=== PATIENT | female | born 1940 | race Caucasian/White ===

== ENCOUNTER → 2016-07-07 | Outpatient (REF) | payer MEDICARE, BC ==
[~2016-07-07] MED LIST: ATOR40TA PO; LEVO10VL PO; MECL-68 PO; RAMI5CA PO; VITA100041 PO; WARF-23 PO; XALA0.002 OU; cholestyramine; preservision; systane
[2016-07-07 11:18] LABS: INR 2.48
== END ==
LOC: M SFHCCLAY 08:32
PROVIDERS: ATTEND Family Medicine
DX: Z79.01 Long term (current) use of anticoagulants (principal)

== ENCOUNTER → 2016-08-04 | Outpatient (REF) | payer MEDICARE, BC ==
[2016-08-04 11:30] LABS: INR 2.28
== END ==
LOC: M SFHCCLAY 09:25
PROVIDERS: ATTEND Family Medicine
DX: Z79.01 Long term (current) use of anticoagulants (principal); Z86.73 Personal history of transient ischemic attack (TIA), and cerebral infarction without residual deficits

== ENCOUNTER → 2016-09-01 | Outpatient (REF) | payer MEDICARE, BC ==
[2016-09-01 11:57] LABS: INR 2.05
== END ==
LOC: M SFHCCLAY 08:06
PROVIDERS: ATTEND Family Medicine
DX: Z79.01 Long term (current) use of anticoagulants (principal)

== ENCOUNTER → 2016-09-29 | Outpatient (REF) | payer MEDICARE, BC ==
[2016-09-29 12:39] LABS: INR 2.15
== END ==
LOC: M SFHCCLAY 07:40
PROVIDERS: ATTEND Family Medicine
DX: Z51.81 Encounter for therapeutic drug level monitoring (principal); Z79.01 Long term (current) use of anticoagulants

== ENCOUNTER → 2016-10-07 | Outpatient (CLI) | payer MEDICARE, BC ==
--- NOTE | 2016-10-25 11:12 | DEXA ---
AP SPINE L1 - L4 0.961 -1.9 -0.1 LT FEMUR TOTAL 0.871 -1.1 0.7 RT FEMUR TOTAL 0.771 -1.9 -0.1 TOTAL BODY TOTAL OTHER DUAL FEMUR FRAX* ASSESSMENT Risk factors: Possible premature menopause. 10 year probability of fracture Major osteoporotic fracture 13.1 % Hip fracture 3.3 % COMMENTS: There is low bone density of the spine and hips. The density of the spine has decreased 6.7% since the initial exam on 2003. Spine density has decreased 6.4% since the most recent exam on 03/20/2013. The density of the left hip has decreased 10.2% since the initial exam on 2003. The density of the left hip has decreased 9.1% since the most recent exam on . The density of the right hip has decreased 9.8% since the initial exam on 2003. The density of the right hip has decreased 10.5% since the most recent exam on 03/20/2013. FOLLOW-UP: Recommendation for the next bone density exam: 2 years. AMEENAD
== END ==
LOC: M WHC 10:28
PROVIDERS: ATTEND Family Medicine
DX: M85.9 Disorder of bone density and structure, unspecified (principal)

== ENCOUNTER → 2016-10-27 | Outpatient (REF) | payer MEDICARE, BC ==
[2016-10-27 12:04] LABS: INR 2.52
== END ==
LOC: M SFHCCLAY 07:33
PROVIDERS: ATTEND Family Medicine
DX: Z51.81 Encounter for therapeutic drug level monitoring (principal); Z79.01 Long term (current) use of anticoagulants

== ENCOUNTER → 2016-11-23 | Outpatient (CLI) | payer MEDICARE, BC ==
--- NOTE | 2016-11-23 14:45 | REP ---
RIGHT LONG AND RING FINGER MRI STUDY WITHOUT CONTRAST: HISTORY: Finger pain. The patient describes chronic pain in the long and ring finger from the metacarpals to the PIP joint region. Comparison radiographs of the right ring and long fingers are from April 19, 2013. TECHNIQUE: Axial, coronal and sagittal imaging planes are utilized. T1 and T2-weighted scans were obtained with and without fat saturation. MRI FINDINGS: Cortical and medullary bone signal intensity are normal in the proximal phalanges, middle phalanges and distal phalanges of all of the visualized digits. No significant joint effusion is seen. No collateral, flexion, or extensor tendon disruption is seen. On T2-weighted scans, there are small areas of increased T2 signal intensity in the distal phalangeal soft tissues just volar to the bony distal tuft. In the long finger this area measures 6 x 5 mm. In the ring finger, this area is smaller, 3 x 4 mm. There is no similar area of abnormal signal intensity adjacent to the distal tuft of the small or index finger or the thumb. Because of the description provided of the location of the patient's pain, the axial sequence does not include the distal marlon. 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 Exam is otherwise unremarkable. 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 No bony abnormality. Otherwise negative study. Signed by Chase Yung MD 11/23/2016 05:08 P
== END ==
LOC: M RAD 11:09
PROVIDERS: ATTEND Plastic Surgery Surgery of the Hand
DX: M79.644 Pain in right finger(s) (principal)

== ENCOUNTER → 2016-11-24 | Outpatient (REF) | payer MEDICARE, BC ==
[2016-11-24 11:22] LABS: INR 1.91
== END ==
LOC: M SFHCCLAY 08:08
PROVIDERS: ATTEND Family Medicine
DX: Z51.81 Encounter for therapeutic drug level monitoring (principal); Z79.01 Long term (current) use of anticoagulants

== ENCOUNTER → 2016-12-22 | Outpatient (REF) | payer MEDICARE, BC ==
[2016-12-22 12:09] LABS: INR 2.18
== END ==
LOC: M SFHCCLAY 07:28
PROVIDERS: ATTEND Family Medicine
DX: Z51.81 Encounter for therapeutic drug level monitoring (principal); Z79.01 Long term (current) use of anticoagulants

== ENCOUNTER → 2016-12-31 | Outpatient (REF) | payer MEDICARE, BC ==
[~2016-12-31] MED LIST changes: -ATOR40TA PO; +ATOR40TA75 PO; +VITA-182 PO; -VITA100041 PO; -XALA0.002 OU; +XALA0.007 OU
[2016-12-31 12:37] LABS: ANION GAP 6 MEQ/L (8-16); BLOOD UREA NITROGEN 16 MG/DL (7-18); CALCIUM LEVEL 10.4 MG/DL (8.8-10.2); CARBON DIOXIDE LEVEL 28 MEQ/L (21-32); CHLORIDE LEVEL 108 MEQ/L (98-107); CREATININE FOR GFR 0.64 MG/DL (0.55-1.02); GLOMERULAR FILTRATION RATE > 60.0 (>39); GLUCOSE, FASTING 97 MG/DL (83-110); POTASSIUM SERUM 4.1 MEQ/L (3.5-5.1); SODIUM LEVEL 142 MEQ/L (136-145)
== END ==
LOC: M SFHCCLAY 09:24
PROVIDERS: ATTEND Family Medicine
DX: E11.9 Type 2 diabetes mellitus without complications (principal)
CPT/HCPCS: 80048; 83036; G0463

== ENCOUNTER → 2017-01-19 | Outpatient (REF) | payer MEDICARE, BC ==
[2017-01-19 11:45] LABS: INR 2.24
== END ==
LOC: M SFHCCLAY 08:27
PROVIDERS: ATTEND Family Medicine
DX: Z79.01 Long term (current) use of anticoagulants (principal)

== ENCOUNTER → 2017-02-16 | Outpatient (REF) | payer MEDICARE, BC ==
[2017-02-16 12:32] LABS: INR 1.93
== END ==
LOC: M SFHCCLAY 07:58
PROVIDERS: ATTEND Family Medicine
DX: Z51.81 Encounter for therapeutic drug level monitoring (principal); Z79.01 Long term (current) use of anticoagulants

== ENCOUNTER → 2017-04-06 | Outpatient (REF) | payer MEDICARE, BC ==
[2017-04-06 12:01] LABS: INR 2.73
== END ==
LOC: M SFHCCLAY 08:14
PROVIDERS: ATTEND Family Medicine
DX: Z79.01 Long term (current) use of anticoagulants (principal)

== ENCOUNTER → 2017-04-19 | Outpatient (REF) | payer MEDICARE, BC | LOC: M LAB REF 11:23 | PROVIDERS: ATTEND Internal Medicine Gastroenterology | DX: R19.7 Diarrhea, unspecified (principal) ==